=== PATIENT | female | born 1970 | race Caucasian/White ===

== ENCOUNTER 2017-09-05 13:36 | Outpatient (CLI) | payer OTHER | END 2017-09-05 13:37 | disposition home or self-care (01) | LOC: BICULT 13:36 | PROVIDERS: ATTEND Nurse Practitioner Women's Health | DX: N92.0 Excessive and frequent menstruation with regular cycle (principal) | CPT/HCPCS: 76856 ==

== ENCOUNTER 2017-11-28 10:19 | Outpatient (CLI) | payer OTHER | END 2017-11-28 10:20 | disposition home or self-care (01) | LOC: BICMAMMO 10:19 | PROVIDERS: ATTEND Nurse Practitioner Family | DX: Z12.31 Encounter for screening mammogram for malignant neoplasm of breast (principal); N63.21 Unspecified lump in the left breast, upper outer quadrant; R92.1 Mammographic calcification found on diagnostic imaging of breast | CPT/HCPCS: 77063; 77067 ==

== ENCOUNTER 2017-11-30 14:46 | Outpatient (CLI) | payer OTHER | END 2017-11-30 14:47 | disposition home or self-care (01) | LOC: BICMAMMO 14:46 | PROVIDERS: ATTEND Nurse Practitioner Family | DX: N63.20 Unspecified lump in the left breast, unspecified quadrant (principal); R92.1 Mammographic calcification found on diagnostic imaging of breast | CPT/HCPCS: 77066; G0279 ==

== ENCOUNTER → 2017-12-08 | Day surgery (SDC) | payer OTHER ==
--- NOTE | 2017-12-08 10:02 | MMO ---
PROCEDURE NOTE: Date: 12/08/17 PREPROCEDURE DIAGNOSIS: Right breast calcifications. POSTPROCEDURE DIAGNOSIS: Right breast calcifications. PROCEDURE: Stereotactic biopsy of right breast calcifications. PAVER INSTALLER: Dr. Quiles. COMPLICATIONS: None. SPECIMEN: Twelve 10 gauge vacuum-assisted core biopsy specimens of right breast calcifications. ANESTHESIA: 11 mL of buffered 1% lidocaine with epinephrine. TECHNIQUE: Prior to the procedure, the risks and benefits of a stereotactic biopsy of the right breast calcifica tions were explained to the patient and she consented fully to the procedure. The calcifications were attempted to be localized from a lateral approach, but these could not be def initely seen with the ML projection. The calcifications were able to be seen with the CC projection a nd approach from superior was performed. Betadine was used to prep the superior aspect of the breast. Lidocaine was used to anesthetize the sk in and soft tissues surrounding the calcifications. A small skin incision was made, allowing for pass age of the 10 gauge vacuum-assisted core biopsy device. The device was placed through the incision into the breast and advanced using stereotactic guidance i nto the region of calcifications. Six core biopsy specimens were obtained in the region of the calcif ications. The first specimen radiograph showed no definite calcifications within any of the specimens . Additional sampling was performed at the biopsy site, yielding calcifications within at least one o f the biopsy specimens. At the completion of procedure, a biopsy clip was placed at the biopsy site. Pressure was held to sujey ntain hemostasis. The patient was sent for mammography post procedure. This showed a biopsy clip in the region where th e calcifications were previously seen on mammography. Residual calcifications were difficult to visua lize and may be obscured by post biopsy hematoma. IMPRESSION: Status post successful stereotactic biopsy of right breast calcifications. POS: [facility]
== END ==
LOC: MAMMO 07:05
PROVIDERS: ATTEND Nurse Practitioner Family
PROC: 0HBT3ZX Excision of Right Breast, Percutaneous Approach, Diagnostic (ICD-10-PCS; principal; 2017-12-08)
DX: N60.11 Diffuse cystic mastopathy of right breast (principal)
CPT/HCPCS: 19081; 76098; 88305; 89060

== ENCOUNTER 2018-01-04 08:38 | Outpatient (CLI) | payer OTHER ==
[2018-01-04 09:51] LABS: #Eosinphils 0.1 thou/uL (0.0-0.7); #Lymphocytes 2.2 thou/uL (1.20-3.40); #Monocytes 0.5 thou/uL (0.11-0.59); #Neutrophils 3.9 thou/uL (1.40-6.50); %Basophils 0.7 % (0.0-1.0); %Eosinophils 1.7 % (0.0-10.0); %Lymphocytes 32.5 % (21.0-51.0); %Monocytes 7.4 % (0.0-10.0); %Neutrophils 57.6 % (42.0-75.0); Hemoglobin 11.8 g/dL (12.0-16.0); Mean Corpuscular HGB CONC 32.6 g/dL (32.0-36.0); Mean Corpuscular Hemoglobin 24.9 pg (27.0-31.0); Mean Corpuscular Volume 76.4 fl (81.0-99.0); Mean Platelet Volume 9.3 fL (7.4-10.4); Platelet Count 257 thou/uL (130-400); Red Blood Cell (RBC) Count 4.74 mill/uL (4.20-5.40); White Blood Cell (WBC) Count 6.8 thou/uL (4.8-10.8)
[2018-01-04 10:11] LABS: Anion Gap 12 mmol/L (10-20); BUN (Urea Nitrogen) 12 mg/dL (7.0-18.7); Calc. Creatinine Clearance 0 mL/min (70-130); Calcium 8.9 mg/dL (7.8-10.44); Carbon Dioxide 23 mmol/L (22-29); Chloride 108 mmol/L (98-107); Estimated GFR-MDRD Greater than 90; Glucose 102 mg/dL (70-105); Potassium 4.2 mmol/L (3.5-5.1); Sodium 139 mmol/L (136-145)
== END 2018-01-04 08:39 | disposition home or self-care (01) ==
LOC: LABBT 08:38
PROVIDERS: ATTEND Surgery
DX: Z01.812 Encounter for preprocedural laboratory examination (principal); N63.10 Unspecified lump in the right breast, unspecified quadrant
CPT/HCPCS: 80048; 85025

== ENCOUNTER 2018-01-11 06:59 | Day surgery (SDC) | payer OTHER ==
[2018-01-04 08:57] VITALS: BMI 35.1
--- NOTE | 2018-01-11 09:20 | MMO ---
LEFT BREAST NEEDLE LOCALIZATION: HISTORY: Breast calcifications which were stereotactic biopsied and showed atypical ductal hyperplasia. Excis ion biopsy is now being performed. TECHNIQUE: After informed consent was obtained, the patient was prepped and draped in the normal sterile fashion . Local anesthesia was obtained with 1% Xylocaine mixed with sodium bicarb. A 7.5 Vincentian [place] need le was introduced via a lateral approach. It was used to localize the clip and the calcifications. The calcifications are just slightly lateral to the position of the clip. IMPRESSION: Needle localization of right breast calcifications and biopsy clip. No immediate complications of th e procedure. POS: [facility]
[2018-01-11] MEDS ORDERED: CEFAZOLIN/Water 2 GM/20 ML SYRINGE ONE (10:25)
[2018-01-11] MEDS ORDERED: Lidocaine 2% 10 ML INJ ONE (10:52)
[2018-01-11] MEDS ORDERED: Bupivacaine/Epinephrine 0.25% 30 ML VIAL ONE (10:52)
[2018-01-11] MEDS ORDERED: Fentanyl 100 MCG/2 ML VIAL ONE ×2 (11:33)
[2018-01-11] MEDS ORDERED: Ondansetron HCl/PF 4 MG/2 ML Vial ONE (12:45)
[2018-01-11] MEDS ORDERED: Dexamethasone 20 MG/5 ML VIAL ONE (12:45)
[2018-01-11] MEDS ORDERED: diphenhydrAMINE 50 MG/ML VIAL ONE (12:45)
[2018-01-11] MEDS ORDERED: Metoclopramide HCl 10 MG/2 ML VIAL ONE (12:45)
[2018-01-11] MEDS ORDERED: PROPOFOL 200 MG/20 ML VIAL ONE (12:45)
[2018-01-11] MEDS ORDERED: Ketorolac Tromethamine 30 MG/ML VIAL ONE (12:45)
[2018-01-11] MEDS ORDERED: Lidocaine 1% PF 5 ML VIAL ONE (12:45)
--- NOTE | 2018-01-11 13:16 | OP ---
DATE OF PROCEDURE: 01/11/2018 PREOPERATIVE DIAGNOSIS: Right breast mass with atypical hyperplasia on core biopsy. POSTOPERATIVE DIAGNOSIS: Right breast mass with atypical hyperplasia on core biopsy. PROCEDURE: Right breast mass excision after needle localization. SURGEON: Zbigniew Haney M.D. ANESTHESIA: General. ESTIMATED BLOOD LOSS: Minimal. COMPLICATIONS: None. SPECIMEN: Right breast mass marked with two short superior, one long lateral. Specimen x-ray reveal s the previous biopsy clip to be in the specimen. TECHNIQUE: The patient underwent right breast needle localization of previous biopsy clip, taken to the operating room and placed supine on the table. After general anesthetic was obtained, the right chest and breast was prepped and draped in a sterile fashion. Transverse incision was made in the la teral chest. Flaps are raised superior and inferolaterally around the needle localization wire. Clinton hercules sent to path where the clip was found to be in the middle of the specimen. The wound is irriga jenna. Local anesthetic is applied. Meticulous hemostasis obtained. The wound was closed using 3-0 V icryl, 4-0 Monocryl, and Dermabond. Patient was en route to recovery in stable condition. All instr ument counts, needle counts, and lap counts were correct.
--- NOTE | 2018-01-11 13:27 | MMO ---
SPECIMEN RADIOGRAPH: HISTORY: Patient with atypical ductal hyperplasia for which excisional biopsy was performed. The single specimen confirms the presence of a biopsy clip. I do not see any definitive additional c alcifications in this area. Findings telephoned to Dr. Haney. IMPRESSION: Successful clip localization. POS: [facility]
== END 2018-01-11 16:20 | disposition home or self-care (01) ==
LOC: SDC 06:59
PROVIDERS: ATTEND Surgery
PROC: 0HBT0ZZ Excision of Right Breast, Open Approach (ICD-10-PCS; principal; 2018-01-11)
DX: D05.11 Intraductal carcinoma in situ of right breast (principal)
CPT/HCPCS: 19281; 76098; 88307; J1100; J1200; J1885; J2001; J2405; J2704; J2765; J3010

== ENCOUNTER 2018-12-05 09:03 | Outpatient (CLI) | payer BC ==
--- NOTE | 2018-12-05 09:47 | MMO ---
Bilateral MAMMO Bilat Diag [id number]. CLINICAL HISTORY: Patient is 48 years old and is seen for diagnostic exam. The patient has no family history of breast cancer. The patient has no personal history of cancer. The patient has a history of right Excisional Biopsy in December, - benign and right Ultrasound Guided Core Biopsy in Nov, 2017 - malignant. VIEWS: The views performed were: bilateral craniocaudal with tomosynthesis; bilateral mediolateral oblique with tomosynthesis; bilateral mediolateral; and right exaggerated craniocaudal. FILMS COMPARED: The present examination has been compared to prior imaging studies performed at [facility] on 05/05/2012, 10/31/2015, 11/12/2016, 11/28/2017 and 11/30/2017. MAMMOGRAM FINDINGS: The breasts are heterogeneously dense, which could obscure a lesion on mammography. Finding 1: There are new post operative changes seen in the right breast. Finding 2: There is a stable nodule seen in the left breast. There are no suspicious masses, suspicious calcifications, or new areas of architectural distortion. IMPRESSION: THERE IS NO MAMMOGRAPHIC EVIDENCE OF MALIGNANCY. A ROUTINE FOLLOW-UP MAMMOGRAM IN 1 YEAR IS RECOMMENDED. THE RESULTS OF THIS EXAM WERE SENT TO THE PATIENT. ACR BI-RADS Category 2 - Benign finding MAMMOGRAPHY NOTE: 1. A negative mammogram report should not delay a biopsy if a dominant of clinically suspicious mass is present. 2. Approximately 10% to 15% of breast cancers are not detected by mammography. 3. Adenosis and dense breasts may obscure an underlying neoplasm.
== END 2018-12-05 09:04 | disposition home or self-care (01) ==
LOC: BICMAMMO 09:03
PROVIDERS: ATTEND Surgery
DX: D05.10 Intraductal carcinoma in situ of unspecified breast (principal)
CPT/HCPCS: 77066; G0279

== ENCOUNTER 2021-10-16 08:31 | Outpatient (CLI) | payer BC | END 2021-10-16 08:32 | disposition home or self-care (01) | LOC: BICMAMMO 08:31 | PROVIDERS: ATTEND Nurse Practitioner Family | DX: C50.919 Malignant neoplasm of unspecified site of unspecified female breast (principal) | CPT/HCPCS: 77066; G0279 ==

== ENCOUNTER 2023-09-01 08:43 | Outpatient (CLI) | payer OTHER | END 2023-09-01 08:44 | disposition home or self-care (01) | LOC: BICMAMMO 08:43 | PROVIDERS: ATTEND Nurse Practitioner Family | DX: R92.8 Other abnormal and inconclusive findings on diagnostic imaging of breast (principal) | CPT/HCPCS: 77066; G0279 ==